=== PATIENT | female | born 1980 | race Caucasian/White ===

== ENCOUNTER 2016-12-28 19:23 | Emergency (ER) | payer BC ==
[2016-12-28 19:29] VITALS: BP 127/82
--- NOTE | 2016-12-28 19:41 | UC ---
Throat Pain/Nasal Pérez HPI - HPI Summary HPI Summary: sore throat and fever on off for 2 weeks - History of Current Complaint Chief Complaint: UCRespiratory Stated Complaint: SORE THROAT Time Seen by Provider: 12/28/16 19:38 Hx Obtained From: Patient Hx Last Menstrual Period: 1 WEEK AGO ?: No Onset/Duration: Gradual Onset, Lasting Weeks - 2, Still Present, Worse Since - past 2 days Severity: Moderate Pain Intensity: 6 Pain Scale Used: 0-10 Numeric Cough: Nonproductive Associated Signs & Symptoms: Positive: Fever - Allergies/Home Medications Allergies/Adverse Reactions: Allergies Allergy/AdvReac Type Severity Reaction Status Date / Time Sulfa Antibiotics Allergy Intermediate Hives Verified 12/28/16 19:29 Home Medications: Home Medications Ibuprofen TAB* [Advil TAB*] 400 mg PO PRN 12/28/16 [History] LORazepam TAB(*) [Ativan TAB(*)] 0.5 mg PO BID 12/28/16 [History Confirmed 12/28] guaiFENesin ER TAB [Mucinex*] 600 mg PO PRN 12/28/16 [History] PMH/Surg Hx/FS Hx/Imm Hx Previously Healthy: No Endocrine History Of: Denies: Diabetes, Thyroid Disease Cardiovascular History Of: Denies: Cardiac Disorders, Hypertension Respiratory History Of: Denies: COPD, Asthma GI/ History Of: Reports: Gall Bladder Disease - Hx of gall stones & cholecystits; cholecystectomy in 2009 Denies: Ulcer Neurological History Of: Reports: Migraine - Chronic migraines ended in 2002 Psychological History Of: Reports: Anxiety, Depression Denies: Bipolar Disorder - Surgical History Surgical History: Yes Surgery Procedure, Year, and Place: gallbladder, appendix - Family History Known Family History: Positive: Hypertension - Social History Occupation: Employed Full-time - at elementary school Lives: With Family Alcohol Use: None Alcohol Amount: 1-2 drinks every 3 months Substance Use Type: None Substance Use Comment - Amount & Last Used: Prescription Ativan Smoking Status (MU): Former Smoker Have You Smoked in the Last Year: No - Immunization History Most Recent Influenza Vaccination: none this season Most Recent Tetanus Shot: 2001 Most Recent Pneumonia Vaccination: none Review of Systems Constitutional: Fever, Chills, Fatigue Skin: Negative Eyes: Negative ENT: Sore Throat Respiratory: Cough Cardiovascular: Negative Gastrointestinal: Negative Genitourinary: Negative Motor: Negative Neurovascular: Negative Musculoskeletal: Negative Neurological: Negative Psychological: Negative All Other Systems Reviewed And Are Negative: Yes Physical Exam Triage Information Reviewed: Yes Appearance: Well-Nourished, Ill-Appearing - mild, Pain Distress - mild Vital Signs: Initial Vital Signs Temp 97.9 F 12/28/16 19:26 Pulse 96 12/28/16 19:26 Resp 16 12/28/16 19:26 BP 127/82 12/28/16 19:26 Pulse Ox 95 12/28/16 19:26 Vital Signs Reviewed: Yes Eye Exam: Normal Eyes: Positive: Conjunctiva Clear ENT Exam: Normal ENT: Positive: Normal ENT inspection, Hearing grossly normal, Pharyngeal erythema, TMs normal. Negative: Nasal congestion, Nasal drainage, Tonsillar swelling, Tonsillar exudate, Trismus, Muffled/hoarse voice Dental Exam: Normal Neck exam: Normal Neck: Positive: Supple, Nontender, No Lymphadenopathy Respiratory Exam: Normal Respiratory: Positive: Chest non-tender, Lungs clear, Normal breath sounds, No respiratory distress, No accessory muscle use Cardiovascular Exam: Normal Cardiovascular: Positive: RRR, No Murmur, Pulses Normal, Brisk Capillary Refill Musculoskeletal Exam: Normal Musculoskeletal: Positive: Strength Intact, ROM Intact, No Edema Neurological Exam: Normal Neurological: Positive: Alert, Muscle Tone Normal Psychological Exam: Normal Skin Exam: Normal Diagnostics - Laboratory Diagnostic Studies Completed/Ordered: RST (+) Influenza (-) Throat Pain/Nasal Course/Dx - Course Assessment/Plan: ibuprofen amoxicillin increase fluids, rest follow with pcp re- check prn - Differential Dx/Diagnosis Differential Diagnosis/HQI/PQRI: Influenza, Laryngitis, Mononucleosis, Otitis Media, Pharyngitis, Sinusitis, Tonsillitis, URI Provider Diagnoses: Strep Pharyngitis Discharge - Discharge Plan Condition: Stable Disposition: HOME Prescriptions: Amoxicillin CAP* 500 mg PO Q12H #20 cap Patient Education Materials: Ibuprofen (By mouth), Amoxicillin (By mouth), Strep Throat (ED) Forms: *Work Release Referrals: Scout Mcleod [Primary Care Provider] - If Needed
[2016-12-28] MEDS ORDERED: Ibuprofen TAB* 600 MG PO ONE (19:47)
== END 2016-12-28 20:05 | disposition home or self-care (01) ==
LOC: UCEAST 19:23
DX: J02.0 Streptococcal pharyngitis (principal); Z88.2 Allergy status to sulfonamides; Z90.49 Acquired absence of other specified parts of digestive tract; Z87.891 Personal history of nicotine dependence
CPT/HCPCS: 87502; 87651; 99212; A9270-GY; G0463

== ENCOUNTER 2017-06-16 17:25 | Emergency (ER) | payer BC ==
--- NOTE | 2017-06-16 18:22 | RAD ---
HISTORY: Occipital headaches, dizziness COMPARISONS: January 21, 2016 TECHNIQUE: Multiple contiguous axial CT scans were obtained of the head without intravenous contrast. FINDINGS: HEMORRHAGE/INFARCT: There is no hemorrhage or acute infarct. MASSES/SHIFT: There is no mass or shift. EXTRA-AXIAL SPACES: There are no extra-axial fluid collections. SULCI AND VENTRICLES: The sulci and ventricles are normal in size and position for the patient's stated age. CEREBRUM: There are no focal parenchymal abnormalities. BRAINSTEM: There are no focal parenchymal abnormalities. CEREBELLUM: There are no focal parenchymal abnormalities. VESSELS: The vessels are grossly normal. PARANASAL SINUSES: The paranasal sinuses are clear. ORBITS: The orbits are unremarkable. BONES AND SOFT TISSUE: No bone or soft tissue abnormalities are noted. OTHER: None IMPRESSION: NO ACUTE INTRACRANIAL PATHOLOGY.
[2017-06-16] MEDS ORDERED: Ondansetron INJ* 2 MG/ML VIAL IV ONE (18:33)
[2017-06-16] MEDS ORDERED: Ketorolac INJ* 30 MG/ML 1 ML VIAL IV ONE (18:34)
--- NOTE | 2017-06-16 19:22 | UC ---
Headache HPI - HPI Summary HPI Summary: 37 yo female with the gradual onset of LOZANO yesterday about 6PM started both right and left occipital region and radiates forward worsened in intensity until about 9pm and has been severe since then nausea no vomiting (+) photophobia no injury has a history of migraines and they seem to be increasing in frequency feels dizzy with this LOZANO last motrin this AM - History Of Current Complaint Chief Complaint: UCHeadache Stated Complaint: HEADACHE,DIZZY,NAUSEA Time Seen by Provider: 06/16/17 17:49 Hx Obtained From: Patient Hx Last Menstrual Period: 05/19/17 Onset/Duration: Gradual Onset, Lasting Hours Onset Of Symptoms: Gradual Initially Headache Was: Mild Currently Pain Is: Severe Pain Intensity: 8 Pain Scale Used: 0-10 Numeric Timing: Constant Character: Dull, Throbbing Location of Headache: Occipital, Other: - radiates to front Aggravating Factor: Position Change Allevating Factors: Nothing Associated Signs And Symptoms: Positive: Dizziness, Nausea - Allergies/Home Medications Allergies/Adverse Reactions: Allergies Allergy/AdvReac Type Severity Reaction Status Date / Time Sulfa Antibiotics Allergy Intermediate Hives Verified 06/16/17 17:36 PMH/Surg Hx/FS Hx/Imm Hx Previously Healthy: Yes Neurological History: Migraine - Surgical History Surgical History: Yes Surgery Procedure, Year, and Place: gallbladder, appendix - Family History Known Family History: Positive: Hypertension - Social History Alcohol Use: Occasionally Alcohol Amount: 1-2 drinks every 3 months Substance Use Type: None Substance Use Comment - Amount & Last Used: Prescription Ativan Smoking Status (MU): Former Smoker Have You Smoked in the Last Year: No - Immunization History Most Recent Influenza Vaccination: none this season Most Recent Tetanus Shot: 2001 Most Recent Pneumonia Vaccination: none Review of Systems Constitutional: Negative Skin: Negative Eyes: Negative ENT: Negative Respiratory: Negative Cardiovascular: Negative Gastrointestinal: Nausea Genitourinary: Negative Motor: Negative Neurovascular: Negative Musculoskeletal: Negative Neurological: Negative Psychological: Negative All Other Systems Reviewed And Are Negative: Yes Physical Exam Triage Information Reviewed: Yes Appearance: Well-Appearing, No Pain Distress, Well-Nourished Vital Signs: Initial Vital Signs Temp 97.9 F 06/16/17 17:32 Pulse 68 06/16/17 17:32 Resp 16 06/16/17 17:32 BP 130/73 06/16/17 17:32 Pulse Ox 98 06/16/17 17:32 Vital Signs Reviewed: Yes Eyes: Positive: Conjunctiva Clear, Other: - eomi/perrl ENT: Positive: Hearing grossly normal, Nasal congestion, Nasal drainage. Negative: Trismus, Muffled/hoarse voice Neck: Positive: Supple, Nontender, No Lymphadenopathy Respiratory Exam: Normal Respiratory: Positive: Lungs clear, Normal breath sounds, No respiratory distress Cardiovascular: Positive: RRR, No Murmur Musculoskeletal: Positive: ROM Intact, No Edema Neurological: Positive: Alert, Muscle Tone Normal, Other: - cn 2-12 intact/ strenght 5/5, dtrs equal /slow but normal gait Psychological Exam: Normal Psychological: Positive: Normal Response To Family Diagnostics - Laboratory Diagnostic Studies Completed/Ordered: CT brain: (-) Re-Evaluation - Re-Evaluation First Eval Change: Unchanged - LOZANO 10/, nausea gone Headache Course/Dx - Course Course Of Treatment: d/w Dr. Oliver. to [facility] [place] via EMS - Differential Dx/Diagnosis Provider Diagnoses: headache of uncertain cause Discharge - Discharge Plan Condition: Stable Disposition: TRANS HIGHER LVL OF CARE FAC
[2017-06-16] MEDS ORDERED: NS 0.9% 1000 ML* 1,000 ML BOLUS ONE (19:45)
[2017-06-16 20:01] VITALS: BP 130/86
== END 2017-06-16 20:09 | disposition short-term general hospital (02) ==
LOC: UCEAST 17:25
DX: R51 Headache (principal)
CPT/HCPCS: 70450; 96361; 96374; 96375; 99213; G0463; J1885; J2405

== ENCOUNTER 2017-06-16 20:27 | Emergency (ER) | payer BC ==
[2017-06-16] MEDS ORDERED: Ondansetron INJ* 2 MG/ML VIAL IV ONE (22:08)
[2017-06-16] MEDS ORDERED: Morphine INJ* 10 MG/ML 1 ML SYRINGE IV ONE (22:08)
[2017-06-16] MEDS ORDERED: NS 0.9% 1000 ML* 1,000 ML BOLUS SCH (22:15)
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
[2017-06-16 23:40] VITALS: BP 119/63
[2017-06-16] MEDS ORDERED: NS 0.9% 1000 ML* 1,000 ML BOLUS ONE (23:45)
== END 2017-06-16 23:36 | disposition home or self-care (01) ==
LOC: ED 20:27
DX: R03.0 Elevated blood-pressure reading, without diagnosis of hypertension (principal); R51 Headache; R11.0 Nausea; M54.2 Cervicalgia; R53.83 Other fatigue
CPT/HCPCS: 96374; 96375; 99283; J2270; J2405

== ENCOUNTER 2017-06-18 14:23 | Emergency (ER) | payer BC ==
[2017-06-18] MEDS ORDERED: Metoclopramide IV* 5 MG/ML 2 ML VIAL IV ONE (16:45)
[2017-06-18] MEDS ORDERED: fentaNYL* 50 MCG/ML 2 ML VIAL (100 MCG VIAL) IV SLOW PU ONE (16:45)
[2017-06-18] MEDS ORDERED: Ketorolac INJ* 30 MG/ML 1 ML VIAL IV PUSH ONE (16:45)
[2017-06-18] MEDS ORDERED: diPHENhydraMINE IV* 50 MG/ML 1 ml VIAL (BENADRYL) IV ONE (16:47)
[2017-06-18] MEDS ORDERED: NS 0.9% 1000 ML* 1,000 ML IV ONE (16:47)
[2017-06-18 16:53] LABS: Hematocrit 38 % (35-47); Hemoglobin 12.6 g/dl (12.0-16.0); Mean Corpuscular HGB Conc 33 g/dl (31-36); Mean Corpuscular Hemoglobin 28 pg (27-31); Mean Corpuscular Volume 85 fL (80-97); Mean Platelet Volume 8 um3 (7.4-10.4); Red Blood Count 4.48 10^6/ul (4.0-5.4); Red Cell Distribution Width 15 % (10.5-15); White Blood Count 8.6 10^3/ul (3.5-10.8)
[2017-06-18 17:04] LABS: Albumin 3.7 g/dL (3.2-5.2); BUN/Creatinine Ratio 14.9 (8-20); Calcium 9.4 mg/dL (8.6-10.3); EGFR Non-African American 87.8 (>60); Globulin 3.2 g/dL (2-4); Potassium 4.1 mmol/L (3.5-5.0); Total Bilirubin 0.4 mg/dL (0.2-1.0); Total Protein 6.9 g/dL (6.4-8.9)
[2017-06-18 17:50] LABS: Erythrocyte Sed Rate 19 mm/Hr (0-14)
[2017-06-18 18:26] VITALS: BP 117/52
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
== END 2017-06-18 18:26 | disposition home or self-care (01) ==
LOC: ED 14:23
DX: R51 Headache (principal); R42 Dizziness and giddiness; R11.0 Nausea; M54.2 Cervicalgia; Z87.891 Personal history of nicotine dependence; H53.149 Visual discomfort, unspecified
CPT/HCPCS: 36415; 80053; 83605; 85025; 85652; 96374; 96375; 99284; J1200; J1885; J3010

== ENCOUNTER 2018-03-06 22:16 | Emergency (ER) | payer BC ==
[2018-03-06 22:48] LABS: Urine Appearance Cloudy; Urine Blood Negative (Negative); Urine Color Yellow; Urine Ketones Negative (Negative); Urine Protein Negative (Negative); Urine Specific Gravity 1.026 (1.010-1.030); Urine Urobilinogen Negative (Negative)
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
[2018-03-07] MEDS ORDERED: Morphine INJ* 2 MG/ML 1 ML CARPUJECT IV ONE (00:28)
[2018-03-07] MEDS ORDERED: Ondansetron INJ* 2 MG/ML VIAL IV ONE (00:28)
[2018-03-07 00:44] LABS: ABS Basophils 0.1 10^3/ul (0-0.2); ABS Eosinophils 0 10^3/ul (0-0.6); ABS Lymphocytes 4.3 10^3/ul (1.0-4.8); ABS Monocytes 0.6 10^3/ul (0-0.8); ABS Neutrophils 5.8 10^3/ul (1.5-7.7); ABS Nucleated RBC 0 10^3/ul; Eosinophil % 0.4 % (0-6); Hematocrit 39 % (35-47); Hemoglobin 12.9 g/dl (12.0-16.0); Mean Corpuscular HGB Conc 34 g/dl (31-36); Mean Corpuscular Hemoglobin 28 pg (27-31); Mean Corpuscular Volume 84 fL (80-97); Mean Platelet Volume 8.4 um3 (7.4-10.4); Nucleated Red Blood Cells % 0; Platelet Count 280 10^3/ul (150-450); Red Blood Count 4.57 10^6/ul (4.0-5.4); Red Cell Distribution Width 15 % (10.5-15); White Blood Count 10.8 10^3/ul (3.5-10.8)
[2018-03-07 01:02] LABS: EGFR Non-African American 79.1 (>60)
[2018-03-07] MEDS ORDERED: Ketorolac INJ* 30 MG/ML 1 ML VIAL IV PUSH ONE (02:35)
[2018-03-07 03:15] VITALS: BP 116/54
--- NOTE | 2018-03-07 07:46 | RAD ---
INDICATION: Bilateral flank pain, pyelonephritis or fragility diagnosis diverticulitis, ovarian cyst. COMPARISON: There are no prior studies available for comparison. TECHNIQUE: A CT scan of the abdomen and pelvis was performed without intravenous or oral contrast. Contiguous axial sections were obtained from the lung bases through the symphysis pubis. Images were reconstructed in the coronal and sagittal planes. FINDINGS: There is mild dependent atelectasis in the right lower lobe. No pleural effusion is present. The liver and spleen are normal in size without significant focal abnormality on this noncontrast study. The patient is status post cholecystectomy. The pancreas appears to be within normal limits. The adrenal glands and kidneys are normal in size. No renal calculi or hydronephrosis is seen. The urinary bladder appears to be within normal limits. No bladder wall thickening or calculi are seen. The aorta is normal in caliber without significant calcific plaque. No significant enlarged retroperitoneal lymph nodes are seen. There is food debris within the stomach. The stomach, small and large bowel appear nondistended. The patient is status post appendectomy by history. There is mild descending and sigmoid diverticulosis without evidence for diverticulitis. The uterus is retroverted and normal in size. There is a trace amount of free intraperineal fluid in the cul-de-sac which is likely physiologic. No free intraperitoneal air is seen. No significant focal osseous abnormality is seen. IMPRESSION: 1. NO EVIDENCE FOR ACUTE FINDING OR CAUSE FOR THE PATIENT'S ABDOMINAL PAIN IS SEEN. 2. STATUS POST CHOLECYSTECTOMY AND APPENDECTOMY.
== END 2018-03-07 03:15 | disposition home or self-care (01) ==
LOC: ED 22:16
DX: R10.84 Generalized abdominal pain (principal); M54.5 Low back pain; Z87.891 Personal history of nicotine dependence
CPT/HCPCS: 36415; 74176; 80053; 81003; 82150; 83605; 83690; 83735; 84702; 85025; 86140; 87480; 87491; 87510; 87591; 87661; 96374; 96375; 99283; J1885; J2270; J2405

== ENCOUNTER 2018-03-08 16:55 | Emergency (ER) | payer BC ==
[2018-03-08 19:43] LABS: ABS Basophils 0.1 10^3/ul (0-0.2); ABS Eosinophils 0 10^3/ul (0-0.6); ABS Lymphocytes 3.6 10^3/ul (1.0-4.8); ABS Monocytes 0.5 10^3/ul (0-0.8); ABS Neutrophils 4.6 10^3/ul (1.5-7.7); ABS Nucleated RBC 0 10^3/ul; Eosinophil % 0.3 % (0-6); Hematocrit 41 % (35-47); Hemoglobin 13.4 g/dl (12.0-16.0); Mean Corpuscular HGB Conc 33 g/dl (31-36); Mean Corpuscular Hemoglobin 28 pg (27-31); Mean Corpuscular Volume 85 fL (80-97); Mean Platelet Volume 8.1 um3 (7.4-10.4); Nucleated Red Blood Cells % 0.1; Platelet Count 289 10^3/ul (150-450); Red Cell Distribution Width 15 % (10.5-15); White Blood Count 8.7 10^3/ul (3.5-10.8)
[2018-03-08 20:01] LABS: EGFR Non-African American 80.3 (>60)
--- NOTE | 2018-03-08 20:06 | RAD ---
Indication: Bilateral pelvic pain. Comparison: March 07, 2018 CT. Technique: Transvaginal pelvic ultrasound. Report: Unremarkable 8.0 x 4.6 x 6.1 cm retroverted uterus with 7.1 mm endometrium. Nabothian cyst at the cervix. Physiologic small volume of free fluid in the cul-de-sac. 2.8 x 2.3 x 2.0 cm RIGHT ovary with documented vascular flow is remarkable for a 1.4 x 0.9 x 1.1 cm heterogeneously hypoechoic lesion devoid of intrinsic vascularity with some inward directed margins consistent with an involuting hemorrhagic cyst. 3.7 x 1.9 x 1.8 cm LEFT ovary with documented vascular flow is unremarkable. No visualized extra ovarian adnexal region lesions evident. IMPRESSION: Small involuting hemorrhagic cyst of the RIGHT ovary.
[2018-03-08] MEDS ORDERED: Ketorolac INJ* 60 MG/2 ML VIAL IM ONE (21:00)
[2018-03-08 22:00] LABS: Urine Appearance Cloudy; Urine Blood Negative (Negative); Urine Color Yellow; Urine Ketones Negative (Negative); Urine Protein Negative (Negative); Urine Specific Gravity 1.018 (1.010-1.030); Urine Urobilinogen Negative (Negative)
[2018-03-08] MEDS ORDERED: traMADol TAB* 50 MG PO PRN (22:25)
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
[2018-03-08 23:11] VITALS: BP 124/66
== END 2018-03-08 23:04 | disposition home or self-care (01) ==
LOC: ED 16:55
DX: M54.5 Low back pain (principal); N83.201 Unspecified ovarian cyst, right side; R42 Dizziness and giddiness; R11.0 Nausea; Z32.02 Encounter for pregnancy test, result negative; G43.909 Migraine, unspecified, not intractable, without status migrainosus; F41.9 Anxiety disorder, unspecified; F32.9 Major depressive disorder, single episode, unspecified; Z90.49 Acquired absence of other specified parts of digestive tract; Z90.89 Acquired absence of other organs; Z88.2 Allergy status to sulfonamides; Z87.891 Personal history of nicotine dependence
CPT/HCPCS: 36415; 76830; 80053; 81003; 81015; 83605; 83690; 84702; 85025; 86140; 87086; 87491; 87591; 96372; 99282; J1885